=== PATIENT | female | born 1985 | race Caucasian/White ===

== ENCOUNTER 2019-05-22 17:15 | Inpatient (IN) | payer OTHER ==
[~2019-05-22] VITALS: Ht 152.4 cm; Wt 68.0 kg
--- NOTE | 2019-05-22 19:16 | PR ---
[facility] [address] [place], [place] [address] Signed Progress Notes IP Datetime Report Generated by CPN: 05/22/2019 19:16 PROGRESS NOTES: [id number] Impression: Normal progression of labor Procedures: Artificial ROM Plan: Continue present management; Anticipate Vaginal Delivery VITAL SIGNS: [id number] Vital Signs: Reviewed; Within Normal Limits EXAM: [id number] Dilatation: 4.0 Effacement: 75 Station: -3 MEMBRANES: [id number] Membrane Status: Ruptured Amniotic Fluid Color: Clear ROM Note: Small amount fluid after easy AROM. Comments: Doing well, but would like Epidural Fetus A: [id number] FHR Baseline: 140 Variability: Moderate 6-25bpm Presentation: Vertex Fetus B: [id number] Signing Physician: Magali London MD Copies: ~ *Electronically Signed* 05/22/191915 MAGALI LONDON MD PATIENT NAME: RAMIREZ IBARRA PROGRESS NOTE DATE OF : 85 PHYSICIAN: MAGALI LONDON MD RPT #: [id number] REPORT IS CONFIDENTIAL AND NOT TO BE RELEASED WITHOUT AUTHORIZATION
--- NOTE | 2019-05-22 22:51 | PR ---
[facility] [address] [facility] [place], [place] [address] Signed Progress Notes IP Datetime Report Generated by CPN: 05/22/2019 22:51 PROGRESS NOTES: [id number] Impression: Normal progression of labor Procedures: Scalp Electrode Plan: Continue present management; Anticipate Vaginal Delivery VITAL SIGNS: [id number] Vital Signs: Reviewed; Within Normal Limits EXAM: [id number] Dilatation: 9.0 Effacement: 90 Station: -2 MEMBRANES: [id number] Membrane Status: Ruptured Amniotic Fluid Color: Bloody ROM Note: some bloody show Comments: Comfortable with Epidural. Some late decels, but should be ready to push soon. Will try position change, O2. Continue monitoring Fetus A: [id number] FHR Baseline: 150 Variability: Moderate 6-25bpm Accelerations: 15X15 Decelerations: Late; Variable Presentation: Vertex Fetus B: [id number] Signing Physician: Anders London MD Copies: ~ *Electronically Signed* 05/22/19 2250 ANDERS LONDON MD PATIENT NAME: RAMIREZ IBARRA WERNER PROGRESS NOTE DATE OF : 85 PHYSICIAN: ANDERS LONDON MD RPT #: [id number] REPORT IS CONFIDENTIAL AND NOT TO BE RELEASED WITHOUT AUTHORIZATION
--- NOTE | 2019-05-23 12:40 | PR ---
[facility] [address] [facility] [place] [address] Signed PP Progress Notes Datetime Report Generated by CPN: 05/23/2019 12:40 SUBJECTIVE: [id number] Pain: Within normal limits Nausea/Vomiting: Denies Vital Signs: [id number] Vital Signs: Reviewed; Within Normal Limits Notable Details: PP Hgb/Hct = 12.6/37.0 EXAM: [id number] Abdomen/Uterus: Normal Lochia: Normal Extremities: Normal IMPRESSION/PLAN/PROCEDURES: [id number] Impression: Normal progression Plan: Continue present management Procedures: None Progress Notes: Doing well, without complaint; would like to go home tomorrow Signing Physician: Magali London MD Copies: ~ *Electronically Signed* 05/23/19 1240 MAGALI LONDON MD PATIENT NAME: RAMIREZ IBARRA PROGRESS NOTE DATE OF : 85 PHYSICIAN: MAGALI LONDON MD RPT #: [id number] REPORT IS CONFIDENTIAL AND NOT TO BE RELEASED WITHOUT AUTHORIZATION
--- NOTE | 2019-05-24 12:21 | PR ---
[facility] [address] [place] [address] Signed PP Progress Notes Datetime Report Generated by CPN: 05/24/2019 12:21 SUBJECTIVE: [id number] Pain: Within normal limits Nausea/Vomiting: Denies Vital Signs: [id number] Vital Signs: Reviewed; Within Normal Limits Notable Details: PP Hgb/Hct = 12.6/37.0 EXAM: [id number] Abdomen/Uterus: Normal Lochia: Normal Extremities: Normal IMPRESSION/PLAN/PROCEDURES: [id number] Impression: Normal progression Plan: Discharge Procedures: None Progress Notes: Doing well, without complaint, would like to go home. Signing Physician: Magali London MD Copies: ~ *Electronically Signed* 05/24/19 1221 MAGALI LONDON MD PATIENT NAME: RAMIREZ IBARRA PROGRESS NOTE DATE OF : 85 PHYSICIAN: MAGALI LONDON MD RPT #: [id number] REPORT IS CONFIDENTIAL AND NOT TO BE RELEASED WITHOUT AUTHORIZATION
== END 2019-05-24 12:55 | disposition home or self-care (01) | DRG 807 ==
LOC: FBC 17:15
PROVIDERS: ADMIT General Practice
PROC: 10E0XZZ Delivery of Products of Conception, External Approach (ICD-10-PCS; principal; 2019-05-22)
PROC: 10907ZC Drainage of Amniotic Fluid, Therapeutic from Products of Conception, Via Natural or Artificial Opening (ICD-10-PCS; 2019-05-22)
PROC: 00HU33Z Insertion of Infusion Device into Spinal Canal, Percutaneous Approach (ICD-10-PCS; 2019-05-22)
PROC: 3E0R3BZ Introduction of Anesthetic Agent into Spinal Canal, Percutaneous Approach (ICD-10-PCS; 2019-05-22)
DX: O48.0 Post-term pregnancy (principal); Z37.0 Single live birth; Z3A.41 41 weeks gestation of pregnancy; O76 Abnormality in fetal heart rate and rhythm complicating labor and delivery; O69.0XX0 Labor and delivery complicated by prolapse of cord, not applicable or unspecified
CPT/HCPCS: 01960; 36415; 85027; A9270; J2590; J2795; J7121